=== PATIENT | female | born 1960 | race Caucasian/White ===

== ENCOUNTER 2016-12-06 11:40 | Outpatient (CLI) | payer BC ==
[~2016-12-06] VITALS: Ht 160 cm; Wt 74.4 kg
[~2016-12-06 11:40] MED LIST: ASPI1TAB PO; LIPI20TA PO; LISI10TA4 PO; METO25TA4 PO; OMEP20CA3 PO
[2016-12-06] MEDS ORDERED: NS 1,000 ML IV SCH (12:00)
[2016-12-06] MEDS ORDERED: PROPOFOL 200 MG/20 ML VIAL As Ordered ONE (12:55)
[2016-12-06] MEDS ORDERED: LIDOCAINE 2% INJ 100 MG/5 ML SDV (FOR ANES.) As Ordered ONE (12:55)
--- NOTE | 2016-12-06 13:04 | ROOR ---
Patient Name: Kiki Wetzel Procedure Date: 12/06/2016 12:43 PM Date of : 1960 Age: 56 Room: [facility] Gender: Female Note Status: Finalized Procedure: Colonoscopy Indications: Screening for colorectal malignant neoplasm Providers: Michoacano SMITH MD Referring MD: SUZAN KNOX MD Requesting Provider: Medicines: Monitored Anesthesia Care Complications: No immediate complications. Procedure: Pre-Anesthesia Assessment: - The heart rate, respiratory rate, oxygen saturations, blood pressure, adequacy of pulmonary ventilation, and response to care were monitored throughout the procedure. The Colonoscope was introduced through the anus and advanced to the cecum, identified by appendiceal orifice and ileocecal valve. The colonoscopy was performed without difficulty. The patient tolerated the procedure well. The quality of the bowel preparation was good. Findings: The perianal and digital rectal examinations were normal. (Exam: Complete, Prep: Good or Excellent.) Two sessile polyps were found in the hepatic flexure and ascending colon. The polyps were diminutive in size. These polyps were removed with a cold snare. Resection and retrieval were complete. A few medium-mouthed diverticula were found in the sigmoid colon. The exam was otherwise without abnormality on direct and retroflexion views. Impression: - (Exam: Complete, Prep: Good or Excellent.) - Two diminutive polyps at the hepatic flexure and in the ascending colon, removed with a cold snare. Resected and retrieved. - Mild diverticulosis in the sigmoid colon. - The colonoscopy examination was otherwise normal on direct and retroflexion views. Recommendation: - Await pathology results. - Telephone endoscopist for pathology results in 2 weeks. - If the pathology report reveals adenomatous tissue, then repeat the colonoscopy for surveillance in 5 years. Michoacano Smith MD Michoacano SMITH MD 12/06/2016 1:04:19 PM This report has been signed electronically. Number of Addenda: 0 Note Initiated On: 12/06/2016 12:43 PM Estimated Blood Loss: Estimated blood loss: none.
[2016-12-06 13:28] VITALS: BP 105/63
== END 2016-12-06 13:29 ==
LOC: M OPP 11:40
PROVIDERS: ATTEND Internal Medicine Gastroenterology
DX: Z12.11 Encounter for screening for malignant neoplasm of colon (principal); D12.3 Benign neoplasm of transverse colon; D12.2 Benign neoplasm of ascending colon; K57.30 Diverticulosis of large intestine without perforation or abscess without bleeding; I10 Essential (primary) hypertension; E78.5 Hyperlipidemia, unspecified; K21.9 Gastro-esophageal reflux disease without esophagitis; G43.909 Migraine, unspecified, not intractable, without status migrainosus; Z90.5 Acquired absence of kidney; Z79.82 Long term (current) use of aspirin; Z79.899 Other long term (current) drug therapy

== ENCOUNTER → 2023-01-09 | Outpatient (REF) | payer BC ==
[~2023-01-09] MED LIST changes: -ASPI1TAB PO; +ASPI81TA26 PO; +LISI10TA22 PO; -LISI10TA4 PO; +OMEP1CAP73 PO; -OMEP20CA3 PO
== END ==
LOC: M LAB REF 15:18
PROVIDERS: ATTEND Physician Assistant Medical
DX: J01.10 Acute frontal sinusitis, unspecified (principal)

== ENCOUNTER 2023-02-22 09:14 | Day surgery (SDC) | payer BC ==
[~2023-02-22] VITALS: Ht 160 cm; Wt 87.5 kg
[~2023-02-22 09:14] MED LIST changes: +AMLO2.5T3 PO; +LEXA1TAB PO; +LISI20TA33 PO; +METO1TAB32 PO; +NS 1,000 ML IV ONE; +ROSU40TA4
[2023-02-22] MEDS ORDERED: propofoL 200 MG/20 ML VIAL As Ordered ONE (10:00)
[2023-02-22 10:20] VITALS: TEMP 97.6
[2023-02-22 10:35] VITALS: BP 122/73; O2SAT 100
== END 2023-02-22 10:45 | disposition home or self-care (01) ==
LOC: M OPP 09:14
PROVIDERS: ATTEND Internal Medicine Gastroenterology
DX: Z12.11 Encounter for screening for malignant neoplasm of colon (principal); Z86.010 Personal history of colon polyps; Z80.0 Family history of malignant neoplasm of digestive organs; D12.4 Benign neoplasm of descending colon; K57.30 Diverticulosis of large intestine without perforation or abscess without bleeding; K64.8 Other hemorrhoids; Z79.02 Long term (current) use of antithrombotics/antiplatelets; Z79.82 Long term (current) use of aspirin; Z79.899 Other long term (current) drug therapy